=== PATIENT | female | born 1975 | race Two or more races ===

== ENCOUNTER 2025-01-17 06:03 | Inpatient (IN) | payer OTHER ==
[~2025-01-17] VITALS: Ht 167.6 cm; Wt 107.2 kg
[2025-01-17 06:55] LABS: PREGNANCY TEST URINE QUAL NEGATIVE (NEGATIVE)
[2025-01-17] MEDS ORDERED: FENTANYL PF 250MCG/5ML AMPUL ONE (07:15)
[2025-01-17] MEDS ORDERED: ROCURONIUM BROMIDE 50 MG/5 ML ONE (07:16)
[2025-01-17] MEDS ORDERED: BUPIVACAINE 0.25% 75 MG/30 ML VIAL ONE (07:26)
[2025-01-17] MEDS ORDERED: BUPIVACAINE 0.5 % PF 150 MG/30 ML VIAL ONE (07:26)
[2025-01-17] MEDS ORDERED: POLYMYXIN B SULFATE 0 UNITS ONE (07:26)
[2025-01-17] MEDS ORDERED: LABETALOL HCL IV 100MG VIAL ONE (08:04)
[2025-01-17] MEDS ORDERED: TRANEXAMIC ACID 1,000 MG/10 ML VIAL ONE ×2 (08:04→08:05)
[2025-01-17] MEDS ORDERED: ROPIVACAINE HCL 0.5% 5 MG/ML 30ML VIAL ONE (09:11)
[2025-01-17] MEDS ORDERED: FENTANYL PF 100MCG/2ML AMPUL ONE ×2 (11:10→11:42)
[2025-01-17 12:00] VITALS: BP 94/50; TEMP 97.2; O2SAT 100
[2025-01-17 12:15] VITALS: BP 94/50; TEMP 97.2; O2SAT 100
[2025-01-17 12:25] LABS: HEMOGLOBIN 12.5 g/dL (11.5-14.8)
[2025-01-17] MEDS ORDERED: AMLO1CAP6 PO (13:14)
[2025-01-17] MEDS ORDERED: CEPH500C2 PO (13:14)
[2025-01-17] MEDS: IV NS 0.9% 500 ML BAG IV ONE (13:40)
[2025-01-17] MEDS: CEFAZOLIN 2 GM in IV D5W 100 ML IV SCH (14:30)
[2025-01-17 14:49] VITALS: BP_SYST 122; BP_SYST 154; BP_DIAS 63; BP_DIAS 78
[2025-01-17] MEDS: MORPHINE SULFATE INJ 4 MG/ML DISP.SYRIN IV PRN (14:55)
[2025-01-17 16:00] VITALS: BP 116/76; TEMP 98.6; O2SAT 99
[2025-01-17] MEDS ORDERED: ONDANSETRON HCL/PF 4 MG/2 ML VIAL IVP PRN (16:30)
[2025-01-17] MEDS ORDERED: MAGNESIUM HYDROXIDE 30 ML UDC PO PRN (16:30)
[2025-01-17] MEDS: oxyCODONE/APAP (5/325 MG) 1 UDTAB TABLET PO PRN (18:38)
[2025-01-17 19:51] LABS: CALCIUM, SERUM 8.7 mg/dL (8.5-10.1); CREATININE 0.8 mg/dL (0.6-1.3); POTASSIUM 4.1 mmol/L (3.5-5.1)
[2025-01-17 20:00] VITALS: BP 124/74; TEMP 98.2; O2SAT 98
[2025-01-18] MEDS: ACETAMINOPHEN 325 MG TABLET PO PRN (01:51)
[2025-01-18 06:55] LABS: BASOPHILS % (AUTO) 0.2 % (0.0-2.0); EOSINOPHILS % (AUTO) 0.5 % (0.0-6.0); HEMATOCRIT 36 % (33-45); LYMPHOCYTES # (AUTO) 0.6 K/uL (0.8-4.8); LYMPHOCYTES % (AUTO) 7.4 % (20.0-44.0); MEAN CORPUSCULAR HEMOGLOBIN 28 PG (26.0-33.0); MEAN CORPUSCULAR HGB CONC 33 g/dl (31.0-36.0); MEAN CORPUSCULAR VOLUME 85 fL (82-100); MONOCYTES # (AUTO) 0.4 K/uL (0.1-1.30); MONOCYTES % (AUTO) 4.9 % (2.0-12.0); NEUTROPHILS # (AUTO) 7.6 K/uL (1.8-8.9); PLATELET COUNT (AUTO) 194 K/uL (150-450); RED BLOOD CELL COUNT(AUTO) 4.26 MIL/uL (4.0-5.2); RED CELL DISTRIBUTION WIDTH 14.4 % (11.5-15.0); WHITE BLOOD COUNT (AUTO) 8.8 K/uL (4.3-11.0)
[2025-01-18 07:06] LABS: CALCIUM, SERUM 8.4 mg/dL (8.5-10.1); CREATININE 0.8 mg/dL (0.6-1.3); MAGNESIUM 1.9 mg/dL (1.8-2.4); PHOSPHORUS 3.5 mg/dL (2.5-4.9); POTASSIUM 3.5 mmol/L (3.5-5.1)
[2025-01-18 08:00] VITALS: BP 122/81; TEMP 98.4; O2SAT 100
[2025-01-18] MEDS: PANTOPRAZOLE 40 MG TABLET.DR PO SCH (08:43)
[2025-01-18] MEDS: ENOXAPARIN SODIUM 40 MG/0.4 ML DISP.SYRIN SQ SCH (08:43)
[2025-01-18] MEDS: PREGABALIN 25 MG CAPSULE PO SCH (10:08)
[2025-01-18] MEDS: MELOXICAM 7.5 MG TABLET PO SCH (10:08)
[2025-01-18] MEDS ORDERED: PREG50CA PO (10:41)
[2025-01-18] MEDS ORDERED: MELO15TA13 PO (10:41)
[2025-01-18 16:00] VITALS: BP 124/93; TEMP 98.1; O2SAT 98
== END 2025-01-18 17:45 | disposition home or self-care (01) | DRG 483 ==
LOC: DS 06:03 → MED 12:16
PROVIDERS: ADMIT Nurse Practitioner Family; ATTEND Nurse Practitioner Family
PROC: 0LS40ZZ Reposition Left Upper Arm Tendon, Open Approach (ICD-10-PCS; 2025-01-17)
PROC: 0RHK04Z Insertion of Internal Fixation Device into Left Shoulder Joint, Open Approach (ICD-10-PCS; 2025-01-17)
PROC: 0RRK00Z Replacement of Left Shoulder Joint with Reverse Ball and Socket Synthetic Substitute, Open Approach (ICD-10-PCS; principal; 2025-01-17 07:30)
DX: S42.292A Other displaced fracture of upper end of left humerus, initial encounter for closed fracture (principal); I10 Essential (primary) hypertension; X58.XXXA Exposure to other specified factors, initial encounter; Y93.9 Activity, unspecified; Y92.009 Unspecified place in unspecified non-institutional (private) residence as the place of occurrence of the external cause; I95.9 Hypotension, unspecified
CPT/HCPCS: 36415; 73020; 80048-TC; 83735-TC; 84100-TC; 84703-TC; 85025-TC; 85027-TC; 97110-TC; 97116-TC; 97530-TC; 97535-TC; A4223; A6403; G0378; J0360; J0461; J0690; J1650; J1885; J2270; J2704; J2795; J3010; J3490; J7030; J7040; J7050; J7060